=== PATIENT | female | born 1935 | race Caucasian/White ===

== ENCOUNTER 2017-07-29 14:32 | Emergency (ER) | payer OTHER ==
[~2017-07-29] VITALS: Ht 165.1 cm; Wt 75.0 kg
[~2017-07-29 14:32] MED LIST: AMIT10TA13 PO; GABA300 PO; LEVA750T PO; LOVA20TA PO
[2017-07-29 14:43] VITALS: BP 133/76; PULSE 89; RESP 16; TEMP 98.2; O2SAT 97
[2017-07-29] MEDS ORDERED: GABA300C5 PO (14:52)
[2017-07-29] MEDS ORDERED: ATOR20TA15 PO (14:52)
--- NOTE | 2017-07-29 15:00 | PD ---
HPI Chief Complaint: Complaint Time Seen by Provider: 14:55 Travel History International Travel<30 days: No Contact w/Intl Traveler<30days: No Traveled to known affect area: No History of Present Illness HPI 82-year-old female patient presents to the ER today because she states that she has had 2 days history of difficulty urinating, states that she is barely urinating much, only a small amount at a time and only a few times per day. She denies any fevers, abdominal, vomiting, or any other symptoms. Of note, she recently had pneumonia and had been treated with Levaquin. Modifying Factors: None Associated Signs & Symptoms: Decreased urination Risk Factors: Elderly PFSH Past Medical History Anxiety: No Depression: No Cancer: Yes (right lung) Cardiovascular Problems: No Diminished Hearing: No Endocrine: No Genitourinary: No Immune Disorder: No Musculoskeletal: Yes Neurologic: Yes (post hepatic neuralgia) Psychiatric: No Reproductive: No Respiratory: No Migraines: Yes Shingles: Yes Menopausal: Yes : 4 Para: 2 Miscarriage: 0 : 2 Past Surgical History Appendectomy: Yes Body Medical Devices: left femur Tonsillectomy: Yes Other Surgery: Yes (right lower lobectomy) Social History Alcohol Use: Yes ("few drinks a day") Tobacco Use: No Substance Use: No Allergies-Medications (Allergen,Severity, Reaction): Coded Allergies: iodine (Verified Allergy, Unknown, 07/29/17) Reported Meds & Prescriptions Reported Meds & Active Scripts Active Reported Atorvastatin (Atorvastatin Calcium) 20 Mg Tab 20 Mg PO HS Gabapentin 300 Mg Cap 300 Mg PO TID Review of Systems Except as stated in HPI: all other systems reviewed are Neg Physical Exam Narrative GENERAL: Well-developed pleasant elderly white female patient currently in no acute distress. Awake and oriented 3. SKIN: Focused skin assessment warm/dry. HEAD: Atraumatic. Normocephalic. EYES: Pupils equal and round. No scleral icterus. No injection or drainage. ENT: No nasal bleeding or discharge. Mucous membranes pink and moist. NECK: Trachea midline. No JVD. CARDIOVASCULAR: Regular rate and rhythm. No murmur appreciated. RESPIRATORY: No accessory muscle use. Clear to auscultation. Breath sounds equal bilaterally. GASTROINTESTINAL: Abdomen soft, non-tender, nondistended. Hepatic and splenic margins not palpable. MUSCULOSKELETAL: No obvious deformities. No clubbing. No cyanosis. No edema. NEUROLOGICAL: Awake and alert. No obvious cranial nerve deficits. Motor grossly within normal limits. Normal speech. PSYCHIATRIC: Appropriate mood and affect; insight and judgment normal. Data Data Last Documented VS Vital Signs Date Time Temp Pulse Resp B/P (MAP) Pulse Ox O2 Delivery O2 Flow Rate FiO2 07/29/17 14:43 98.2 89 16 133/76 (95) 97 Orders Orders Complete Blood Count With Diff (07/29/17 14:55) Basic Metabolic Panel (Bmp) (07/29/17 14:55) Urinalysis - C+S If Indicated (07/29/17 14:55) Cath For Specimen (07/29/17 14:55) Urine Culture (07/29/17 15:05) Labs Laboratory Tests Test 07/29/17 15:05 07/29/17 15:30 Urine Collection Type VOIDED Urine Color STRAW Urine Turbidity CLEAR Urine pH 6.0 Urine Specific Drew 1.008 Urine Protein NEG mg/dL Urine Glucose (UA) NEG mg/dL Urine Ketones NEG mg/dL Urine Occult Blood NEG Urine Nitrite NEG Urine Bilirubin NEG Urine Leukocyte Esterase SMALL Urine WBC 3-5 /hpf Urine WBC Clumps OCC Urine Squamous Epithelial Cells 0-3 /hpf Urine Bacteria OCC /hpf Microscopic Urinalysis Comment CULTURE INDICATED White Blood Count 6.9 TH/MM3 Red Blood Count 4.51 MIL/MM3 Hemoglobin 13.2 GM/DL Hematocrit 39.4 % Mean Corpuscular Volume 87.5 FL Mean Corpuscular Hemoglobin 29.2 PG Mean Corpuscular Hemoglobin Concent 33.4 % Red Cell Distribution Width 13.8 % Platelet Count 183 TH/MM3 Mean Platelet Volume 8.7 FL Neutrophils (%) (Auto) 65.6 % Lymphocytes (%) (Auto) 23.7 % Monocytes (%) (Auto) 5.8 % Eosinophils (%) (Auto) 1.4 % Basophils (%) (Auto) 3.5 % Neutrophils # (Auto) 4.6 TH/MM3 Lymphocytes # (Auto) 1.6 TH/MM3 Monocytes # (Auto) 0.4 TH/MM3 Eosinophils # (Auto) 0.1 TH/MM3 Basophils # (Auto) 0.2 TH/MM3 CBC Comment DIFF FINAL Differential Comment Blood Urea Nitrogen 13 MG/DL Creatinine 0.96 MG/DL Random Glucose 106 MG/DL Calcium Level 8.6 MG/DL Sodium Level 139 MEQ/L Potassium Level 4.7 MEQ/L Chloride Level 103 MEQ/L Carbon Dioxide Level 28.4 MEQ/L Anion Gap 8 MEQ/L Estimat Glomerular Filtration Rate 56 ML/MIN MDM Medical Decision Making Medical Screen Exam Complete: Yes Emergency Medical Condition: Yes Medical Record Reviewed: Yes Interpretation(s) Laboratory Tests Test 07/29/17 15:05 07/29/17 15:30 Urine Leukocyte Esterase SMALL (NEG) Urine WBC Clumps OCC (NONE) Urine Bacteria OCC /hpf (NONE) Basophils (%) (Auto) 3.5 % (0.0-2.0) Estimat Glomerular Filtration Rate 56 ML/MIN (>89) Differential Diagnosis Decreased urination: Dehydration versus UTI versus renal failure Narrative Course Abdomen is benign and do not suspect an acute intra-abdominal process. She does have a mild UTI which is suspect could be causing some of the symptoms. She is appears that she is urinating a small amount of the time. My plan would be to treat her UTI with a different antibiotic than Levaquin derived antibiotics and have her follow-up with primary care doctor. Return for worsening in symptoms as necessary. The plan has discussed with her and she states understanding. Diagnosis Primary Impression: UTI (urinary tract infection) Med/Other Pt SpecificInfo: Prescription(s) given Scripts Nitrofurantoin Monohydrate Macrocrystals (Macrobid) 100 Mg Cap 100 MG PO BID for Infection for 7 Days, #14 CAP 0 Refills Prov: Mat Metzger MD 07/29/17 Disposition: 01 DISCHARGE HOME Condition: Stable Mat Metzger MD Jul 29, 2017 15:00
[2017-07-29 15:18] LABS: BLOOD, URINE NEG (NEG); GLUCOSE,URINE NEG (NEG); KETONE, URINE NEG (NEG); NITRITE,URINE NEG (NEG)
[2017-07-29 15:42] LABS: AUTOMATED NEUTROPHIL # 4.6 TH/MM3 (1.8-7.7); BASOPHIL # 0.2 TH/MM3 (0-0.2); BASOPHIL % 3.5 % (0.0-2.0); EOSINOPHIL # 0.1 TH/MM3 (0-0.4); EOSINOPHIL % 1.4 % (0.0-4.0); HEMATOCRIT 39.4 % (35.0-46.0); HEMO FLAGS DIFF FINAL; LYMPH % 23.7 % (9.0-44.0); LYMPHOCYTE # 1.6 TH/MM3 (1.0-4.8); MEAN CELL VOLUME 87.5 FL (80.0-100.0); MEAN CORPUSCULAR HEMOGLOBIN 29.2 PG (27.0-34.0); MEAN CORPUSCULAR HGB CONC 33.4 % (32.0-36.0); MONO % 5.8 % (0.0-8.0); NEUT % 65.6 % (16.0-70.0); PLATELET COUNT 183 TH/MM3 (150-450); RED BLOOD COUNT 4.51 MIL/MM3 (4.00-5.30); RED CELL DISTRIBUTION WIDTH 13.8 % (11.6-17.2); WHITE BLOOD COUNT 6.9 TH/MM3 (4.0-11.0)
[2017-07-29 15:53] LABS: BICARBONATE 28.4 MEQ/L (21.0-32.0)
[2017-07-29 15:59] LABS: POTASSIUM 4.7 MEQ/L (3.5-5.1)
[2017-07-29 16:00] LABS: METHOD OF COLLECTION VOIDED; URINE COLOR STRAW (YELLW/STRAW)
[2017-07-29 16:01] LABS: BACTERIA, URINE OCC /hpf; COMMENT (UR) CULTURE INDICATED; CULTURE IF INDICATED CULTURE INDICATED; SQUAMOUS EPITHELIAL CELL URINE 0-3 /hpf (0-5)
[2017-07-29] MEDS ORDERED: MACR100C2 PO (16:06)
[2017-07-29 16:35] VITALS: BP 119/55
== END 2017-07-29 16:46 | disposition home or self-care (01) ==
LOC: PHED 14:32
DX: N39.0 Urinary tract infection, site not specified (principal); B96.89 Other specified bacterial agents as the cause of diseases classified elsewhere
CPT/HCPCS: 80048; 81001; 85025; 87086; 99283; P9612